=== PATIENT | female | born 1945 | race Caucasian/White ===

== ENCOUNTER 2016-11-05 14:24 | Outpatient (CLI) | payer MEDICARE | END 2016-11-05 14:25 | disposition home or self-care (01) | DX: R93.0 Abnormal findings on diagnostic imaging of skull and head, not elsewhere classified (principal) ==

== ENCOUNTER 2016-11-24 11:34 | Outpatient (CLI) | payer MEDICARE | END 2016-11-24 11:35 | disposition home or self-care (01) | DX: D18.09 Hemangioma of other sites (principal); R44.3 Hallucinations, unspecified ==

== ENCOUNTER 2017-01-01 11:50 | Outpatient (CLI) | payer MEDICARE | END 2017-01-01 11:51 | disposition home or self-care (01) | DX: K92.1 Melena (principal) ==

== ENCOUNTER 2017-01-01 18:28 | Outpatient (CLI) | payer MEDICARE ==
[2017-01-01] MEDS ORDERED: IOPAMIDOL-300 50 ML VIAL PO ONE (18:38)
[2017-01-01] MEDS ORDERED: IOPAMIDOL-300 100 ML VIAL IVP ONE (18:38)
== END 2017-01-01 18:29 | disposition home or self-care (01) ==
DX: K63.89 Other specified diseases of intestine (principal)
CPT/HCPCS: 74177; 80053; Q9967

== ENCOUNTER 2017-03-01 12:26 | Day surgery (SDC) | payer MEDICARE ==
[2017-03-01] MEDS ORDERED: LACTATED RINGERS 1,000 ML IV ONE (13:04)
[2017-03-01] MEDS ORDERED: MIDAZOLAM 2 MG/2 ML VIAL IVP ONE (13:18)
[2017-03-01] MEDS ORDERED: fentaNYL 100 MCG/2 ML VIAL IVP ONE (13:18)
--- NOTE | 2017-03-01 13:22 | HISTORY & PHYSICAL EXAMINATION ---
HPI - History of Present Illness HPI Comment/Other: Visit Type: Initial Consult Primary Provider: Helen Montgomery DO History of Present Illness: Patient is here today with bloody stools, last colonoscopy 2008....................................................................Lucy Lauren MA January 26, 2017 10:22 AM Karen is here referred by Lisa Montgomery for bleeding per rectum and the finding of colitis on a recent CT scan. About a month ago she began having symptoms of bleeding per rectum associated with abdominal pain that she describes as burning in nauture. She eventually was seen by her PCP and a CT scan performed which demonstrated distal colonic colitis concerning for ischemic versus infectious in etiology. She was treated with Flagyl for 1 week with some relief of her pain and total resolution of the bleeding. Her last colonoscopy was June 2015, and a 0.4 cm sigmoid tubular adenoma was removed. She was also noted to have an ulcerated lesion in her lower rectum which was biopsied and demonstrated erosion with no polypoid tissue or dysplasia. She has no familiy history of colon cancer or colonic polyps. She denies unexplained weight loss or loss of appetite. She Is a poorly controlled insulin dependent diabetic. Current Meds: OMEPRAZOLE 20 MG CPDR (OMEPRAZOLE) Take one capsule by mouth daily ISOSORBIDE MONONITRATE ER 30 MG ORAL [id number] (ISOSORBIDE MONONITRATE) Take one tablet every morning for chest pain NITROSTAT 0.4 MG SUBL (NITROGLYCERIN) For chest pain, place one tablet under the tongue every five minutes for up to three doses. If no relief call 911. DULOXETINE HCL 20 MG ORAL CPEP (DULOXETINE HCL) Take two tablets every morning ( Psychiatrist) CITALOPRAM HYDROBROMIDE 20 MG ORAL TABS (CITALOPRAM HYDROBROMIDE) Take one tablet by mouth daily in the evening * DISABLED PARKING PASS Cannot walk 200 feet without stopping to rest LISINOPRIL 20 MG TABS (LISINOPRIL) Take one tablet by mouth daily PRAVASTATIN SODIUM 20 MG ORAL TABS (PRAVASTATIN SODIUM) Take one tablet nightly for cholesterol HUMULIN 70/30 KWIKPEN (70-30) 100 UNIT/ML SC SUPN (INSULIN NPH ISOPHANE & REGULAR) Inject 34 units subcutaneously before breakfast and 30 units before dinner FELODIPINE 10 MG [id number] (FELODIPINE) Take one tablet by mouth daily HYDROCHLOROTHIAZIDE 25 MG TABS (HYDROCHLOROTHIAZIDE) Take two tablets by mouth once daily. GABAPENTIN 300 MG CAPS (GABAPENTIN) Take three capsules by mouth three times per day BD PEN NEEDLE ULTRAFINE 29G X 12.7MM MISC (INSULIN PEN NEEDLE) Use with insulin syringe.three times daily [employer] LANCETS 33G MISC (LANCETS) For use with three times daily glucose testing ONETOUCH [employer] INVITR STRP (GLUCOSE BLOOD) Use one strip to check blood sugar up to three times daily. Dx E11.65 [employer] IQ SYSTEM W/DEVICE KIT (BLOOD GLUCOSE MONITORING SUPPL) For use with daily glucose monitoring * [employer] CONTOUR DIABETIC TESTING STRIPS Use to test glucose bid due to fluctuating blood sugars/DM Allergies: MORPHINE (Critical) ARTHROTEC (DICLOFENAC-MISOPROSTOL TBEC) (Critical) IBUPROFEN (Critical) GOLYTELY (PEG 1974-QBO-PULGE-NACL-NASULF SOLR) (Critical) METFORMIN HCL (METFORMIN HCL) (Critical) DILAUDID (HYDROMORPHONE HCL) (Cr Past Medical History: Reviewed history from 12/11/2013 and no changes required: Patient reports reaction to Arthrotec and morphine. She cites general dislike of and intolerance to many meds. Intolerant of statins and does not wish to take. Irregular heartbeat Chest pain hypertension hyperlipidemia Shortness of beath Asthma Diabetes Problems with Anesthesia Depression Past Surgical History: Reviewed history from 03/07/2013 and no changes required: T A H and B S O Bladder Suspension Cholecystectomy Bone graft R foot for fx 5th metatarsal Rotator Cuff Repair, R--Nov 12, 2011 Cervical disc/fusion Family History Summary: Reviewed history Last on 10/22/2015 and no changes required:01/26/2017 Father (biol.) - Has a father - Entered On: 05/11/2014 Mother (biol.) - Has a mother - Entered On: 05/11/2014 General Comments - FH: Neg for diabetes. mother - alcoholic father - alcoholic Social History: Reviewed history from 11/08/2014 and no changes required: Patient has never smoked. Alcohol Use - yes Risk Factors: Smoked Tobacco Use: Never smoker Smokeless Tobacco Use: Never Passive smoke exposure: no Drug use: no HIV high-risk behavior: no Caffeine use: 2 drinks per day Alcohol use: no Exercise: no Seatbelt use: 100 % Sun Exposure: occasionally Family History Risk Factors: Family History of SC in females < 65 years old: no Family History of SC in males < 55 years old: no Problems were reviewed with the patient during this visit. Medications were reviewed with the patient during this visit. Allergies were reviewed with the patient during this visit. Allergies: MORPHINE (Critical) ARTHROTEC (DICLOFENAC-MISOPROSTOL TBEC) (Critical) IBUPROFEN (Critical) GOLYTELY (PEG 3517-KZO-VPTKT-NACL-NASULF SOLR) (Critical) METFORMIN HCL (METFORMIN HCL) (Critical) DILAUDID (HYDROMORPHONE HCL) (Critical) Physical Exam General: normal appearance and obese. Lungs: clear bilaterally to A & P Heart: regular rate and rhythm, S1, S2 without murmurs, rubs, gallops, or clicks Abdomen: mild tenderness to palpation in left lower extremity. No masses palpable. Non distended Pulses: pulses normal in all 4 extremities Extremities: no clubbing, cyanosis, edema, or deformity noted with normal full range of motion of all joints Impression & Recommendations: Problem # 1: bloody stools, colitis I have explained the colonoscopy procedure to the patient in detail and the risks involved, including but not limited to bleeding, perforated viscus and missing lesions. The patient understands the above and has agreed to proceed with the procedure. Colon prep instructions and prescription provided. Approximately 20 minutes spent in preparing the patient; all Questions and concerns were addressed. PMH/PSH - Past Medical History Cardiovascular: positive: Hypertension, High cholesterol, Arrhythmia Respiratory: positive: Asthma Endocrine/Autoimmune: positive: Type 2 diabetes GI: positive: Ulcerative colitis : positive: None HEENT: positive: Chronic vision loss, Other Psych: positive: Depression, Anxiety, Post traumatic stress disorder Musculoskeletal: positive: Fibromyalgia Derm: positive: Other MRSA Hx?: No - Past Surgical History General: positive: Cholecystectomy, Colonoscopy Ortho: positive: Rotator cuff repair /[employer]: positive: Hysterectomy, Oophrectomy Social & Family Hx - Social History Does the pt smoke?: No Smoking Status: Never smoker Does the pt drink ETOH?: No ETOH Use: Wine Does the pt have substance abuse?: No - POLST Patient has POLST: No Meds/Allgy - Home Medications Home Medications: Ambulatory Orders Medication Instructions Recorded Confirmed Gabapentin [Neurontin] 300 mg PO TID #90 capsule 10/20/13 03/01/17 Buspirone HCl 30 mg PO DAILY 02/26/17 03/01/17 DULoxetine [Cymbalta] 60 mg PO DAILY 02/26/17 03/01/17 Felodipine [Felodipine ER] 10 mg PO DAILY 02/26/17 03/01/17 Insulin NPH Human Isophane 26 units SQ BID 02/26/17 03/01/17 [Humulin N] Insulin Regular, Human [Humulin R] 11 unit SQ DAILY 02/26/17 03/01/17 Lisinopril 20 mg PO BID 02/26/17 03/01/17 Omeprazole [PriLOSEC] 20 mg PO DAILY 02/26/17 03/01/17 Pravastatin [Pravachol] 20 mg PO DAILY 02/26/17 03/01/17 Hydrochlorothiazide 50 mg PO DAILY 03/01/17 03/01/17 Isosorbide Mononitrate ER [Imdur] 30 mg PO DAILY 03/01/17 03/01/17 - Allergies Allergies/Adverse Reactions: Allergies Allergy/AdvReac Type Severity Reaction Status Date / Time asenapine maleate * Allergy Respiratory Verified 03/01/17 13:09 [From Saphris] diclofenac sodium * Allergy Unknown Verified 02/26/17 12:29 [From Arthrotec] hydromorphone HCl * Allergy Hives Verified 02/26/17 12:41 [From Dilaudid] metformin Allergy Nausea Verified 02/26/17 12:42 misoprostol [From Arthrotec] Allergy Unknown Verified 02/26/17 12:29 polyethylene glycol Allergy Hives Verified 03/01/17 12:56 [From Golytely] polyethylene glycol 3350 Allergy Hives Verified 03/01/17 12:56 [From Golytely] potassium chloride * Allergy Hives Verified 03/01/17 12:56 [From Golytely] sodium [From Golytely] Allergy Hives Verified 03/01/17 12:56 sodium bicarbonate * Allergy Hives Verified 03/01/17 12:56 [From Golytely] sodium chloride Allergy Hives Verified 03/01/17 12:56 [From Golytely] sodium sulfate Allergy Hives Verified 03/01/17 12:56 [From Golytely] sodium sulfate anhydrous * Allergy Hives Verified 03/01/17 12:56 [From Golytely] ibuprofen AdvReac Unknown Anaphylaxis Verified 02/26/17 12:41 morphine AdvReac Unknown Hives Verified 02/26/17 12:41 Exam - Vital Signs Vital Signs: Vital Signs x48h Temp Pulse Resp BP Pulse Ox 03/01/17 12:44 36.7 C 107 H 18 133/77 H 97 Results - Lab Results Other Lab Results: Lab Results x24hrs 03/01/17 Range/Units 12:51 POC Whole Bld Glucose 187 H (70 - 100) mg/dL
[2017-03-01 14:51] VITALS: BP 105/70
== END 2017-03-01 12:27 | disposition home or self-care (01) ==
LOC: SDS 12:26
PROVIDERS: ATTEND Surgery
PROC: 0DBL8ZX Excision of Transverse Colon, Via Natural or Artificial Opening Endoscopic, Diagnostic (ICD-10-PCS; 2017-03-01)
PROC: 0DBN8ZX Excision of Sigmoid Colon, Via Natural or Artificial Opening Endoscopic, Diagnostic (ICD-10-PCS; 2017-03-01)
PROC: 0DBP8ZX Excision of Rectum, Via Natural or Artificial Opening Endoscopic, Diagnostic (ICD-10-PCS; principal; 2017-03-01 13:30)
DX: K92.1 Melena (principal); K51.90 Ulcerative colitis, unspecified, without complications; D12.3 Benign neoplasm of transverse colon; I10 Essential (primary) hypertension; E78.5 Hyperlipidemia, unspecified; J45.909 Unspecified asthma, uncomplicated; F32.9 Major depressive disorder, single episode, unspecified; E66.9 Obesity, unspecified; E11.51 Type 2 diabetes mellitus with diabetic peripheral angiopathy without gangrene; Z79.4 Long term (current) use of insulin; Z90.710 Acquired absence of both cervix and uterus; Z90.722 Acquired absence of ovaries, bilateral; Z90.79 Acquired absence of other genital organ(s); Z90.49 Acquired absence of other specified parts of digestive tract; Z81.1 Family history of alcohol abuse and dependence; Z88.5 Allergy status to narcotic agent
CPT/HCPCS: 88305

== ENCOUNTER 2022-07-12 17:28 | Outpatient (CLI) | payer MEDICARE | END 2022-07-12 17:29 | disposition critical access hospital (66) | LOC: EMS 17:28 | DX: R07.89 Other chest pain (principal); R06.02 Shortness of breath; R11.0 Nausea | CPT/HCPCS: A0425; A0429 ==

== ENCOUNTER 2023-11-01 17:43 | Outpatient (CLI) | payer MEDICARE | END 2023-11-01 23:59 | disposition EMS.NT | LOC: EMS 17:43 | DX: Z03.89 Encounter for observation for other suspected diseases and conditions ruled out (principal) ==

== ENCOUNTER 2024-02-01 08:52 | Outpatient (CLI) | payer MEDICARE | END 2024-02-01 23:40 | disposition EMS.NT | LOC: EMS 08:52 | DX: M79.18 Myalgia, other site (principal) ==

== ENCOUNTER 2024-03-20 09:17 | Outpatient (CLI) | payer MEDICARE | END 2024-03-20 23:59 | disposition EMS.NT | LOC: EMS 09:17 | DX: Z03.89 Encounter for observation for other suspected diseases and conditions ruled out (principal) ==

== ENCOUNTER 2024-03-24 09:11 | Outpatient (CLI) | payer MEDICARE | END 2024-03-24 23:59 | disposition EMS.NT | LOC: EMS 09:11 | DX: R53.1 Weakness (principal) ==

== ENCOUNTER 2024-03-26 00:33 | Outpatient (CLI) | payer MEDICARE | END 2024-03-26 23:59 | disposition EMS.NT | LOC: EMS 00:33 | DX: Z03.89 Encounter for observation for other suspected diseases and conditions ruled out (principal) ==